=== PATIENT | female | born 1960 | race Caucasian/White ===

== ENCOUNTER 2017-07-24 03:19 | Emergency (ER) | payer OTHER ==
[~2017-07-24] VITALS: Ht 170.2 cm; Wt 81.7 kg
[~2017-07-24 03:19] MED LIST: ALBU90OI61 INH; CARI350; DIAZ10 PO; FLUSAL2505 INH; Fiorinal1 EA PO; GABA300 PO; GLYB2.5 PO; HYDACE5; HYDACE5 PO; HYDR1TAB94 PO; IBUP600 PO; IBUP800 PO; LEVSOD150 PO; LEVSOD200; LEVSOD200 PO; META800 PO; METF500 PO; Norco 5-325 Ta1 EACH PO; PIOG15 PO; PRED20 PO; PROC10 PO; Percocet 5-3251 EACH PO; Prednisone50 MG PO; RANI150EL PO; SUCR1 PO; TOPI50 PO; Valium5 MG PO; ZANTAC PO; Zofran Odt4 MG PO
[2017-07-24] MEDS ORDERED: GLYB2.5 PO (04:16)
[2017-07-24] MEDS ORDERED: LEVO-T150 MCG PO (04:17)
[2018-01-25] MEDS ORDERED: BOTOX COSMETIC100 U (18:06)
[2018-01-25] MEDS ORDERED: BUDE6HFA INH (18:06)
[2018-01-25] MEDS ORDERED: BACL10 PO (18:18)
[2018-01-25] MEDS ORDERED: META800 PO (18:50)
[2018-01-25] MEDS ORDERED: LIDO700A20 TOP (18:50)
== END 2017-07-24 07:14 | disposition home or self-care (01) ==
LOC: ER 03:19
DX: M25.551 Pain in right hip (principal); G89.29 Other chronic pain; E11.9 Type 2 diabetes mellitus without complications; Z88.8 Allergy status to other drugs, medicaments and biological substances; Z88.0 Allergy status to penicillin; Z91.011 Allergy to milk products; Z91.012 Allergy to eggs; Z79.899 Other long term (current) drug therapy
CPT/HCPCS: 73502; 99283

== ENCOUNTER → 2017-10-13 | Outpatient (CLI) | payer OTHER ==
[~2017-10-13] MED LIST changes: +LEVO-T150 MCG PO
[2017-10-13 18:49] LABS: Free Thyroxine 0.93 ng/dL (0.70-1.60); Thyroid Stimulating Hormone 3.98 uIU/mL (0.360-4.800)
== END | disposition home or self-care (01) ==
LOC: LAB SHORT 18:01 → LAB 18:01
PROVIDERS: Nurse Practitioner Family
DX: E03.9 Hypothyroidism, unspecified (principal)
CPT/HCPCS: 84439; 84443

== ENCOUNTER 2018-01-30 15:51 | Emergency (ER) | payer OTHER ==
[~2018-01-30] VITALS: Ht 170.2 cm; Wt 73.9 kg
[~2018-01-30 15:51] MED LIST changes: +BACL10 PO; +BOTOX COSMETIC100 U; +BUDE6HFA INH; +LIDO700A20 TOP
[2018-01-30] MEDS ORDERED: LIDO700A20 TOP (17:00)
[2018-01-30] MEDS ORDERED: META800 PO (17:00)
== END 2018-01-30 17:08 | disposition home or self-care (01) ==
LOC: ER 15:51
DX: R20.2 Paresthesia of skin (principal); E11.9 Type 2 diabetes mellitus without complications; Z88.8 Allergy status to other drugs, medicaments and biological substances; Z88.0 Allergy status to penicillin; Z91.011 Allergy to milk products; Z79.899 Other long term (current) drug therapy; Z79.84 Long term (current) use of oral hypoglycemic drugs
CPT/HCPCS: 73030; 73110; 99283-25

== ENCOUNTER → 2019-01-10 | Outpatient (CLI) | payer OTHER ==
[~2019-01-10] MED LIST changes: +ACAI WEIGHT CO1 EACH PO; +AIMOVIG AU70 MG/1 ML SC; +CHLO4 PO; +CHOLESTEROL DEFENSE PO; +CHROMIUM400 MCG PO; +Calcium Citrat200 MG PO; +DICLO GEL1 EACH TOP; +Esgic Tablet1 EACH PO; +FISH OIL 1,0001 EAC1 PO; +GREEN TEA SLIM PO; +MIGRAINE RELIE1 EACH PO; +RASPBERRY KETO100 MG PO; +RED YEAST RICE600 MG PO; +Super Calcium600 MG PO; +Synthroid200 MCG PO; +VITAMIN D32000 UNI1 PO
[2019-01-10 19:00] LABS: Bilirubin, Urine Neg (Neg); Blood, Urine 4+ (Neg); Glucose Qualitative, Urine Neg (Neg); Ketones, Urine Neg (Neg); Leukocyte Esterase, Urine 3+ (Neg); Nitrite, Urine Neg (Neg); Protein, Urine 2+ (Neg); Urobilinogen, Urine NORM (Normal)
[2019-01-10 19:07] LABS: Appearance, Urine Clear (Clear); Color, Urine Yellow (P-Yellow)
[2019-01-10 19:08] LABS: Bacteria Many /hpf; Squamous Epithelial Cells Few /hpf (Few); White Blood Cells, Urine 25-50 /hpf (0-5)
== END | disposition home or self-care (01) ==
LOC: LAB 18:16 → LAB SHORT 18:16
PROVIDERS: Nurse Practitioner Family
DX: N39.0 Urinary tract infection, site not specified (principal)
CPT/HCPCS: 81001; 87077; 87086; 87186

== ENCOUNTER 2019-01-17 08:59 | Day surgery (SDC) | payer OTHER ==
[~2019-01-17] VITALS: Ht 170.2 cm; Wt 62.9 kg
[~2019-01-17 08:59] MED LIST changes: -ACAI WEIGHT CO1 EACH PO; -AIMOVIG AU70 MG/1 ML SC; -CHLO4 PO; -CHOLESTEROL DEFENSE PO; -CHROMIUM400 MCG PO; -Calcium Citrat200 MG PO; -DICLO GEL1 EACH TOP; -Esgic Tablet1 EACH PO; -FISH OIL 1,0001 EAC1 PO; -GREEN TEA SLIM PO; -MIGRAINE RELIE1 EACH PO; -RASPBERRY KETO100 MG PO; -RED YEAST RICE600 MG PO; -Super Calcium600 MG PO; -Synthroid200 MCG PO; -VITAMIN D32000 UNI1 PO
--- NOTE | 2019-01-17 10:35 | NUR ---
01/17/19 1035 Krista Manuel LATE ENTRY---THERE WAS FOOD IN STOMACH, DR GASTON ONLY TOOK BX'S GASTIC THEN ABORTED PROCEDURE DUE TO THE LARGE AMOUNT OF UNDIGESTED FOOD. PATIENT WAS STABLE AND NO PROBLEMS DURING THE SHORT PROCEDURE
[2019-01-24] MEDS ORDERED: Esgic Tablet1 EACH PO (14:02)
[2019-01-24] MEDS ORDERED: Synthroid200 MCG PO (14:02)
[2019-01-24] MEDS ORDERED: DICLO GEL1 EACH TOP (14:03)
[2019-01-24] MEDS ORDERED: Super Calcium600 MG PO (14:03)
[2019-01-24] MEDS ORDERED: VITAMIN D32000 UNI1 PO (14:04)
[2019-01-24] MEDS ORDERED: RED YEAST RICE600 MG PO (14:04)
[2019-01-24] MEDS ORDERED: FISH OIL 1,0001 EAC1 PO (14:04)
[2019-01-24] MEDS ORDERED: Calcium Citrat200 MG PO (14:05)
[2019-01-24] MEDS ORDERED: RASPBERRY KETO100 MG PO (14:06)
[2019-01-24] MEDS ORDERED: GREEN TEA SLIM PO (14:06)
[2019-01-24] MEDS ORDERED: CHLO4 PO (14:07)
[2019-01-24] MEDS ORDERED: ACAI WEIGHT CO1 EACH PO (14:07)
[2019-01-24] MEDS ORDERED: CHROMIUM400 MCG PO (14:07)
[2019-01-24] MEDS ORDERED: CHOLESTEROL DEFENSE PO (14:07)
[2019-01-24] MEDS ORDERED: AIMOVIG AU70 MG/1 ML SC (14:08)
[2019-01-24] MEDS ORDERED: MIGRAINE RELIE1 EACH PO (14:09)
== END 2019-01-17 10:31 | disposition home or self-care (01) ==
LOC: ORSCSDS 08:59
PROVIDERS: Internal Medicine Gastroenterology
PROC: 0DB68ZX Excision of Stomach, Via Natural or Artificial Opening Endoscopic, Diagnostic (ICD-10-PCS; principal; 2019-01-17 10:15)
DX: K21.0 Gastro-esophageal reflux disease with esophagitis (principal); K44.9 Diaphragmatic hernia without obstruction or gangrene; E11.9 Type 2 diabetes mellitus without complications; J45.909 Unspecified asthma, uncomplicated; E03.9 Hypothyroidism, unspecified; E78.5 Hyperlipidemia, unspecified; N18.2 Chronic kidney disease, stage 2 (mild); Z79.899 Other long term (current) drug therapy
CPT/HCPCS: 82947; 88305; 88342; J2704; J7120

== ENCOUNTER 2019-01-28 07:40 | Day surgery (SDC) | payer OTHER ==
[~2019-01-28] VITALS: Ht 170.2 cm; Wt 61.4 kg
[~2019-01-28 07:40] MED LIST changes: +ACAI WEIGHT CO1 EACH PO; +AIMOVIG AU70 MG/1 ML SC; +CHLO4 PO; +CHOLESTEROL DEFENSE PO; +CHROMIUM400 MCG PO; +Calcium Citrat200 MG PO; +DICLO GEL1 EACH TOP; +Esgic Tablet1 EACH PO; +FISH OIL 1,0001 EAC1 PO; +GREEN TEA SLIM PO; +MIGRAINE RELIE1 EACH PO; +RASPBERRY KETO100 MG PO; +RED YEAST RICE600 MG PO; +Super Calcium600 MG PO; +Synthroid200 MCG PO; +VITAMIN D32000 UNI1 PO
--- NOTE | 2019-01-28 08:49 | NUR ---
01/28/19 0849 MARGARETTE GIFFORD ONE BAD IV, ONE GOOD IV BY ADA
== END 2019-01-28 09:49 | disposition home or self-care (01) ==
LOC: ORSCSDS 07:40
PROVIDERS: Internal Medicine Gastroenterology
PROC: 0DB68ZX Excision of Stomach, Via Natural or Artificial Opening Endoscopic, Diagnostic (ICD-10-PCS; principal; 2019-01-28 09:00)
PROC: 0DB58ZX Excision of Esophagus, Via Natural or Artificial Opening Endoscopic, Diagnostic (ICD-10-PCS; principal; 2019-01-28 09:00)
DX: K21.0 Gastro-esophageal reflux disease with esophagitis (principal); K22.2 Esophageal obstruction; K29.90 Gastroduodenitis, unspecified, without bleeding; K44.9 Diaphragmatic hernia without obstruction or gangrene; E03.9 Hypothyroidism, unspecified; E78.5 Hyperlipidemia, unspecified; E11.9 Type 2 diabetes mellitus without complications; Z79.84 Long term (current) use of oral hypoglycemic drugs; Z79.899 Other long term (current) drug therapy
CPT/HCPCS: 82947; 88305; 88312; 88341; 88342; J2704; J7120

== ENCOUNTER 2019-02-22 20:53 | Emergency (ER) | payer OTHER ==
[~2019-02-22] VITALS: Ht 170.2 cm; Wt 59.9 kg
[2019-02-22] MEDS ORDERED: TOPI50 PO (23:05)
[2019-02-22] MEDS ORDERED: IBUP600 PO (23:42)
[2019-02-22] MEDS ORDERED: HYDR1TAB94 PO (23:42)
== END 2019-02-23 00:27 | disposition home or self-care (01) ==
LOC: ER 20:53
DX: S82.65XA Nondisplaced fracture of lateral malleolus of left fibula, initial encounter for closed fracture (principal); W01.0XXA Fall on same level from slipping, tripping and stumbling without subsequent striking against object, initial encounter; Z88.8 Allergy status to other drugs, medicaments and biological substances; Z88.0 Allergy status to penicillin; Z91.011 Allergy to milk products; Z91.012 Allergy to eggs; Z79.84 Long term (current) use of oral hypoglycemic drugs; Z79.82 Long term (current) use of aspirin; Z79.899 Other long term (current) drug therapy; E11.9 Type 2 diabetes mellitus without complications
CPT/HCPCS: 29505; 73610; 73630; 99283-25; A9270

== ENCOUNTER 2019-02-28 21:08 | Emergency (ER) | payer OTHER ==
[~2019-02-28] VITALS: Ht 170.2 cm; Wt 61.2 kg
== END 2019-02-28 22:34 | disposition home or self-care (01) ==
LOC: ER 21:08
DX: S82.402D Unspecified fracture of shaft of left fibula, subsequent encounter for closed fracture with routine healing (principal); E11.9 Type 2 diabetes mellitus without complications; Z88.8 Allergy status to other drugs, medicaments and biological substances; Z88.0 Allergy status to penicillin; Z91.012 Allergy to eggs; Z91.011 Allergy to milk products; Z79.899 Other long term (current) drug therapy; Z79.82 Long term (current) use of aspirin; Z79.84 Long term (current) use of oral hypoglycemic drugs; X58.XXXD Exposure to other specified factors, subsequent encounter
CPT/HCPCS: 73610; 99283-25; A9270; A9270-GY

== ENCOUNTER → 2019-04-28 | Outpatient (CLI) | payer OTHER ==
[2019-05-02 14:07] LABS: HPV 16 Negative (Negative); HPV 18 Negative (Negative); HPV OTHER HR TYPES Negative (Negative)
== END ==
LOC: OLS 16:45 → LAB SHORT 16:45
PROVIDERS: Registered Nurse Community Health
DX: Z12.4 Encounter for screening for malignant neoplasm of cervix (principal); N95.1 Menopausal and female climacteric states; Z80.3 Family history of malignant neoplasm of breast
CPT/HCPCS: 87624; G0123

== ENCOUNTER → 2019-04-28 | Outpatient (CLI) | payer OTHER | LOC: LAB SHORT 16:45 → LAB 16:45 | DX: Z12.4 Encounter for screening for malignant neoplasm of cervix (principal); N95.1 Menopausal and female climacteric states; Z80.3 Family history of malignant neoplasm of breast | CPT/HCPCS: 87070; 87205 ==

== ENCOUNTER → 2019-06-02 | Outpatient (CLI) | payer OTHER | LOC: LAB SHORT 11:58 → PLD 11:58 | DX: N95.0 Postmenopausal bleeding (principal) | CPT/HCPCS: 88305 ==

== ENCOUNTER 2020-06-13 20:07 | Emergency (ER) | payer OTHER ==
[~2020-06-13] VITALS: Ht 170.2 cm; Wt 74.8 kg
[~2020-06-13 20:07] MED LIST changes: +AMLO5 PO; +Actos15 MG; +FLUT1DIS5 INH
[2020-06-13] MEDS ORDERED: CEFD300 PO (20:17)
== END 2020-06-13 20:24 | disposition home or self-care (01) ==
LOC: ER 20:07
DX: H66.91 Otitis media, unspecified, right ear (principal); K21.9 Gastro-esophageal reflux disease without esophagitis; E11.9 Type 2 diabetes mellitus without complications; Z79.82 Long term (current) use of aspirin; Z79.899 Other long term (current) drug therapy; Z88.8 Allergy status to other drugs, medicaments and biological substances; Z91.012 Allergy to eggs; Z91.011 Allergy to milk products; Z88.0 Allergy status to penicillin; Z79.51 Long term (current) use of inhaled steroids
CPT/HCPCS: 99282

== ENCOUNTER → 2020-07-09 | Outpatient (CLI) | payer OTHER ==
[~2020-07-09] MED LIST changes: +CEFD300 PO
== END | disposition home or self-care (01) ==
LOC: LAB 17:56 → LAB SHORT 17:56
DX: R39.9 Unspecified symptoms and signs involving the genitourinary system (principal)
CPT/HCPCS: 87077; 87086; 87186

== ENCOUNTER 2021-05-12 18:45 | Emergency (ER) | payer OTHER ==
[~2021-05-12] VITALS: Ht 170.2 cm; Wt 67.1 kg
== END 2021-05-12 21:20 | disposition home or self-care (01) ==
LOC: ER 18:45
DX: S63.502A Unspecified sprain of left wrist, initial encounter (principal); S93.402A Sprain of unspecified ligament of left ankle, initial encounter; E11.9 Type 2 diabetes mellitus without complications; K21.9 Gastro-esophageal reflux disease without esophagitis; Z88.8 Allergy status to other drugs, medicaments and biological substances; Z88.0 Allergy status to penicillin; Z91.011 Allergy to milk products; Z91.012 Allergy to eggs; Z79.82 Long term (current) use of aspirin; Z79.899 Other long term (current) drug therapy; W06.XXXA Fall from bed, initial encounter
CPT/HCPCS: 73110; 73610; 99283-25

== ENCOUNTER → 2021-09-30 | Outpatient (CLI) | payer OTHER ==
[2021-10-01 22:21] LABS: Adenovirus F 40/41 Not Detected (NOT DETECT); Astrovirus Not Detected (NOT DETECT); Campylobacter Sp Not Detected (NOT DETECT); Cryptosporidium Not Detected (NOT DETECT); Cyclospora Cayetanensis Not Detected (NOT DETECT); E. Coli O157 Not Detected (NOT DETECT); Entamoeba Histolytica Not Detected (NOT DETECT); Enteroaggregative E. coli-EAEC Not Detected (NOT DETECT); Enteropathogenic E. coli-EPEC Not Detected (NOT DETECT); Enterotoxigenic E. coli-ETEC Not Detected (NOT DETECT); Giardia Lamblia Not Detected (NOT DETECT); Norovirus GI/GII Not Detected (NOT DETECT); Plesiomonas Shigelloides Not Detected (NOT DETECT); Rotavirus A Not Detected (NOT DETECT); Salmonella Sp Not Detected (NOT DETECT); Sapovirus Not Detected (NOT DETECT); Shiga Toxin-prod E. coli-STEC Not Detected (NOT DETECT); Shigella/Enteroin E. coli-EIEC Not Detected (NOT DETECT); Vibrio Cholerae Not Detected (NOT DETECT); Vibrio Sp Not Detected (NOT DETECT); Yersinia Enterocolitica Not Detected (NOT DETECT)
== END | disposition home or self-care (01) ==
LOC: LAB SHORT 02:00
PROVIDERS: Emergency Medicine
DX: E86.0 Dehydration (principal); R19.7 Diarrhea, unspecified
CPT/HCPCS: 87507

== ENCOUNTER → 2022-02-24 | Outpatient (CLI) | payer OTHER | END | disposition home or self-care (01) | LOC: LAB 18:14 → LAB SHORT 18:14 | DX: N39.0 Urinary tract infection, site not specified (principal) | CPT/HCPCS: 87077; 87086; 87186 ==

== ENCOUNTER 2022-04-10 06:14 | Day surgery (SDC) | payer OTHER ==
[~2022-04-10] VITALS: Ht 170.2 cm; Wt 75.8 kg
[2022-04-10] MEDS ORDERED: Lisinopril2.5 MG PO (06:59)
[2022-04-10] MEDS ORDERED: BUTALB-ACETAMI1 EAC7 PO (07:02)
[2022-04-10] MEDS ORDERED: LIOT5 PO (07:03)
[2022-04-10] MEDS ORDERED: EZET10 PO (07:04)
--- NOTE | 2022-04-10 08:58 | NUR ---
04/10/22 0858 ROBIN FLORES PT VOID PRIOR TO DC.
== END 2022-04-10 09:00 | disposition home or self-care (01) ==
LOC: ORSCSDS 06:14
PROVIDERS: Obstetrics & Gynecology
PROC: 0UJD8ZZ Inspection of Uterus and Cervix, Via Natural or Artificial Opening Endoscopic (ICD-10-PCS; principal; 2022-04-10 07:30)
PROC: 0UDB7ZX Extraction of Endometrium, Via Natural or Artificial Opening, Diagnostic (ICD-10-PCS; principal; 2022-04-10 07:30)
DX: N95.0 Postmenopausal bleeding (principal); R10.2 Pelvic and perineal pain; Z80.3 Family history of malignant neoplasm of breast; E11.22 Type 2 diabetes mellitus with diabetic chronic kidney disease; N18.2 Chronic kidney disease, stage 2 (mild); I12.9 Hypertensive chronic kidney disease with stage 1 through stage 4 chronic kidney disease, or unspecified chronic kidney disease; K76.0 Fatty (change of) liver, not elsewhere classified; E03.9 Hypothyroidism, unspecified; J44.9 Chronic obstructive pulmonary disease, unspecified; J45.909 Unspecified asthma, uncomplicated; K21.9 Gastro-esophageal reflux disease without esophagitis; E78.5 Hyperlipidemia, unspecified; Z79.899 Other long term (current) drug therapy
CPT/HCPCS: 82947; 88305; 88342; A9270; J2370; J2704; J3010; J7120

== ENCOUNTER → 2022-09-12 | Outpatient (CLI) | payer OTHER ==
[~2022-09-12] MED LIST changes: +BUTALB-ACETAMI1 EAC7 PO; +EZET10 PO; +LIOT5 PO; +Lisinopril2.5 MG PO
== END | disposition home or self-care (01) ==
LOC: LAB SHORT 17:59
DX: N30.90 Cystitis, unspecified without hematuria (principal)
CPT/HCPCS: 87086

== ENCOUNTER 2022-09-20 12:36 | Emergency (ER) | payer OTHER ==
[~2022-09-20] VITALS: Ht 170.2 cm; Wt 72.6 kg
== END 2022-09-20 15:55 | disposition home or self-care (01) ==
LOC: ER 12:36
DX: S71.111A Laceration without foreign body, right thigh, initial encounter (principal); W27.8XXA Contact with other nonpowered hand tool, initial encounter; Z23 Encounter for immunization; E11.22 Type 2 diabetes mellitus with diabetic chronic kidney disease; N18.9 Chronic kidney disease, unspecified; Z91.012 Allergy to eggs; Z91.02 Food additives allergy status; Z91.011 Allergy to milk products; Z88.0 Allergy status to penicillin; Z88.8 Allergy status to other drugs, medicaments and biological substances; Z91.048 Other nonmedicinal substance allergy status
CPT/HCPCS: 90714

== ENCOUNTER 2022-09-25 06:00 | Day surgery (SDC) | payer OTHER ==
[2022-09-23 17:42] LABS: BASOPHILS ABSOLUTE AUTO 0.05 K/mm3 (0.00-0.23); BASOPHILS PERCENT AUTO 1 % (0-2); EOSINOPHILS ABSOLUTE AUTO 0.44 K/mm3 (0.00-0.68); EOSINOPHILS PERCENT AUTO 4 % (0-6); Hematocrit 41.4 % (33.0-51.0); Hemoglobin 13.5 g/dL (11.5-16.0); IMMATURE GRAN ABSOLUTE AUTO 0.01 K/mm3 (0.00-0.10); IMMATURE GRAN PERCENT AUTO 0 % (0-1); LYMPHOCYTES ABSOLUTE AUTO 1.91 K/mm3 (0.84-5.20); LYMPHOCYTES PERCENT AUTO 19 % (21-46); MONOCYTES PERCENT AUTO 6 % (4-13); Mean Corpuscular HGB 30.6 pg (26.0-34.0); Mean Corpuscular HGB Conc 32.6 g/dL (31.5-36.5); Mean Corpuscular Volume 94 fL (80-100); NEUTROPHILS ABSOLUTE AUTO 6.99 K/mm3 (1.96-9.15); NEUTROPHILS PERCENT AUTO 70 % (41-73); Platelet Count 214 K/mm3 (150-400); RDW Coefficient Variation 14.8 % (11.7-14.2); RDW Standard Deviation 51.4 fL (35.1-46.3); Red Blood Cell Count 4.41 M/mm3 (3.80-5.20)
[2022-09-23 17:55] LABS: Bun/Creatinine Ratio 35.7 (12.0-20.0); Calcium, Blood 9.1 mg/dL (8.5-10.1); Creatinine, Blood 1.29 mg/dL (0.40-1.00); Potassium, Blood 4.6 mmol/L (3.5-5.5)
[~2022-09-25] VITALS: Ht 170.2 cm; Wt 71.3 kg
[~2022-09-25 06:00] MED LIST changes: +AIMOVIG AU140 MG/1 M SQ; +Robaxin750 MG; +SUCR1
--- NOTE | 2022-09-25 07:21 | NUR ---
Ambulatory in Day [facility] WITH CANE. History, Chart, Medications and Allergies reviewed before start of procedure. Lungs clear T/O to Auscultation. Patient confirms NPO status and agrees with scheduled surgery. Pre-Op teaching done. Pt verbalizes understanding. PT BELONGINGS PLACED UNDERNEATH GURNEY FOR SAFEKEEPING. PT CANE TAKEN TO PACU FOR SAFEKEEPING.
--- NOTE | 2022-09-25 08:33 | NUR ---
09/25/22 0833 Chary Michele BRUISES AND ONE SMALL CUT WITH GLUE SUBSTAMCE COVERING IT NOTED ON LEGS DURING POSITIONG
--- NOTE | 2022-09-25 12:26 | NUR ---
PT ARRIVED TO UNIT AT APROX 1100 FROM PACU. LAP SITES X'S 4 C/D/I CLOSED W/WOUND GLU. PT SBA TO BATHROOM, VOIDED 300 DARK YELLOW URINE W/O DIFFICULTY. PT DENIES PAIN. PLAN FOR DC THIS AFTERNOON IF MEETS ALL DC CRITERIA.
--- NOTE | 2022-09-25 17:21 | NUR ---
DISCHARGE PT DISCHARGED HOME FROM UNIT AT APROX 1430. PT VOIDED, AMBULATED, NO PAIN FOLLOWING ARRIVAL TO UNIT. ALL DC CRITERIA MET. PT GIVEN WRITTEN AND VERBAL DC INSTRUCTIONS AND VERBALIZED UNDERSTANDING OF THESE INSTRUCTIONS. IV REMOVED. WC TO CAR. PT STATES SHE HAS RX FOR PAIN MEDICATION AT HOME RECIEVED AT PRE-OP APT.
== END 2022-09-25 15:08 | disposition home or self-care (01) ==
LOC: ORSCMMR 06:00 → ORD 07:30 → ORSCMMR 07:30 → ORD 08:00 → SURS 10:42 → ORSCMMR 15:08
PROVIDERS: Obstetrics & Gynecology
PROC: 0UT7FZZ Resection of Bilateral Fallopian Tubes, Via Natural or Artificial Opening With Percutaneous Endoscopic Assistance (ICD-10-PCS; principal; 2022-09-25 07:30)
PROC: 0UT2FZZ Resection of Bilateral Ovaries, Via Natural or Artificial Opening With Percutaneous Endoscopic Assistance (ICD-10-PCS; principal; 2022-09-25 07:30)
PROC: 0UT9FZZ Resection of Uterus, Via Natural or Artificial Opening With Percutaneous Endoscopic Assistance (ICD-10-PCS; principal; 2022-09-25 07:30)
PROC: 8E0W4CZ Robotic Assisted Procedure of Trunk Region, Percutaneous Endoscopic Approach (ICD-10-PCS; principal; 2022-09-25 07:30)
DX: N95.0 Postmenopausal bleeding (principal); R10.2 Pelvic and perineal pain; D25.9 Leiomyoma of uterus, unspecified; N72 Inflammatory disease of cervix uteri; N73.6 Female pelvic peritoneal adhesions (postinfective); N83.292 Other ovarian cyst, left side; N83.291 Other ovarian cyst, right side; N83.8 Other noninflammatory disorders of ovary, fallopian tube and broad ligament; G47.33 Obstructive sleep apnea (adult) (pediatric); E11.9 Type 2 diabetes mellitus without complications; E03.9 Hypothyroidism, unspecified; K21.9 Gastro-esophageal reflux disease without esophagitis; Z79.899 Other long term (current) drug therapy; N18.2 Chronic kidney disease, stage 2 (mild)
CPT/HCPCS: 58571; S2900; 36415; 80048; 82947; 85025; 86850; 86900; 86901; 88108; 88307; A9270; J0690; J1100; J1885; J2250; J2405; J2704; J2795; J3010; J7120

== ENCOUNTER 2022-10-10 21:27 | Emergency (ER) | payer OTHER ==
[~2022-10-10] VITALS: Ht 170.2 cm; Wt 72.6 kg
[2022-10-10 21:43] VITALS: BP 128/76
== END 2022-10-10 23:05 | disposition home or self-care (01) ==
LOC: ER 21:27
DX: S63.92XA Sprain of unspecified part of left wrist and hand, initial encounter (principal); X50.0XXA Overexertion from strenuous movement or load, initial encounter; E11.22 Type 2 diabetes mellitus with diabetic chronic kidney disease; N18.9 Chronic kidney disease, unspecified; Z91.012 Allergy to eggs; Z91.02 Food additives allergy status; Z91.011 Allergy to milk products; Z88.0 Allergy status to penicillin; Z88.8 Allergy status to other drugs, medicaments and biological substances; Z91.048 Other nonmedicinal substance allergy status; Z79.899 Other long term (current) drug therapy
CPT/HCPCS: 29125; 73130; 99283-25

== ENCOUNTER 2022-11-04 08:35 | Day surgery (SDC) | payer OTHER ==
[~2022-11-04] VITALS: Ht 170.2 cm; Wt 69.5 kg
--- NOTE | 2022-11-04 09:53 | NUR ---
11/04/22 0953 Red Carlos CALL LIGHT WITHIN REACH. TETRACAINE IN AT 0949 AND PLEDGETT IN AT 0924
[2022-11-04 11:53] VITALS: BP 101/55
--- NOTE | 2022-11-04 11:55 | NUR ---
11/04/22 1155 GreernamElizabeth IV REMOVED, SITE WNL
== END 2022-11-04 12:06 | disposition home or self-care (01) ==
LOC: ORSCSDS 08:35
PROVIDERS: Student in an Organized Health Care Education/Training Program
PROC: 08DJ3ZZ Extraction of Right Lens, Percutaneous Approach (ICD-10-PCS; principal; 2022-11-04 10:00)
DX: H25.13 Age-related nuclear cataract, bilateral (principal); J45.909 Unspecified asthma, uncomplicated; E78.00 Pure hypercholesterolemia, unspecified; E03.9 Hypothyroidism, unspecified; E05.90 Thyrotoxicosis, unspecified without thyrotoxic crisis or storm; G47.33 Obstructive sleep apnea (adult) (pediatric); Z86.16 Personal history of COVID-19; Z79.899 Other long term (current) drug therapy
CPT/HCPCS: 82947; J2250; J3010; J7040; V2632

== ENCOUNTER 2022-11-06 11:28 | Emergency (ER) | payer OTHER ==
[~2022-11-06] VITALS: Ht 170.2 cm; Wt 69.0 kg
[2022-11-06 11:58] LABS: BASOPHILS ABSOLUTE AUTO 0.07 K/mm3 (0.00-0.23); BASOPHILS PERCENT AUTO 1 % (0-2); EOSINOPHILS ABSOLUTE AUTO 0.42 K/mm3 (0.00-0.68); EOSINOPHILS PERCENT AUTO 5 % (0-6); Hematocrit 39.5 % (33.0-51.0); Hemoglobin 12.6 g/dL (11.5-16.0); IMMATURE GRAN ABSOLUTE AUTO 0.02 K/mm3 (0.00-0.10); IMMATURE GRAN PERCENT AUTO 0 % (0-1); LYMPHOCYTES ABSOLUTE AUTO 2.15 K/mm3 (0.84-5.20); LYMPHOCYTES PERCENT AUTO 25 % (21-46); MONOCYTES ABSOLUTE AUTO 0.53 K/mm3 (0.16-1.47); MONOCYTES PERCENT AUTO 6 % (4-13); Mean Corpuscular HGB 30.1 pg (26.0-34.0); Mean Corpuscular HGB Conc 31.9 g/dL (31.5-36.5); Mean Corpuscular Volume 95 fL (80-100); Mean Platelet Volume 10.7 fL (9.1-12.4); NEUTROPHILS ABSOLUTE AUTO 5.55 K/mm3 (1.96-9.15); NEUTROPHILS PERCENT AUTO 64 % (41-73); Platelet Count 244 K/mm3 (150-400); RDW Coefficient Variation 14.3 % (11.7-14.2); RDW Standard Deviation 49.9 fL (35.1-46.3); Red Blood Cell Count 4.18 M/mm3 (3.80-5.20); White Blood Cell Count 8.74 K/mm3 (4.00-11.30)
[2022-11-06 12:41] LABS: Albumin, Blood 3.6 g/dL (3.4-5.0); Albumin/Globulin Ratio 1.1 (0.8-1.8); Bilirubin, Total 0.2 mg/dL (0.1-1.0); Calcium, Blood 9.7 mg/dL (8.5-10.1); Creatinine, Blood 1.26 mg/dL (0.40-1.00); Globulin, Blood 3.3 g/dL (2.2-4.0); Magnesium, Blood 2.1 mg/dL (1.6-2.4); Total Protein, Blood 6.9 g/dL (6.4-8.2)
[2022-11-06 14:08] VITALS: BP 116/77
== END 2022-11-06 14:22 | disposition home or self-care (01) ==
LOC: ER 11:28
PROVIDERS: Student in an Organized Health Care Education/Training Program
DX: R55 Syncope and collapse (principal); Z88.0 Allergy status to penicillin; Z88.8 Allergy status to other drugs, medicaments and biological substances; Z91.012 Allergy to eggs; Z91.011 Allergy to milk products; Z79.899 Other long term (current) drug therapy; E11.9 Type 2 diabetes mellitus without complications; K21.9 Gastro-esophageal reflux disease without esophagitis; N18.9 Chronic kidney disease, unspecified
CPT/HCPCS: 71046; 80053; 83735; 84484; 85025; 93005; 93010; 99284-25

== ENCOUNTER 2022-12-08 11:30 | Emergency (ER) | payer OTHER ==
[~2022-12-08] VITALS: Ht 170.2 cm; Wt 83.9 kg
[2022-12-08 11:39] VITALS: BP 125/80
[2022-12-08] MEDS ORDERED: CEPH500 PO (11:40)
== END 2022-12-08 11:45 | disposition home or self-care (01) ==
LOC: ER 11:30
DX: L03.113 Cellulitis of right upper limb (principal); J04.0 Acute laryngitis; E11.22 Type 2 diabetes mellitus with diabetic chronic kidney disease; N18.9 Chronic kidney disease, unspecified; W54.1XXA Struck by dog, initial encounter; Z88.0 Allergy status to penicillin; Z88.8 Allergy status to other drugs, medicaments and biological substances; Z91.011 Allergy to milk products; Z91.012 Allergy to eggs; Z91.09 Other allergy status, other than to drugs and biological substances; Z79.890 Hormone replacement therapy; Z79.899 Other long term (current) drug therapy
CPT/HCPCS: 99283

== ENCOUNTER 2023-01-05 11:19 | Emergency (ER) | payer OTHER ==
[~2023-01-05] VITALS: Ht 170.2 cm; Wt 70.3 kg
[~2023-01-05 11:19] MED LIST changes: +CEPH500 PO
[2023-01-05 11:27] VITALS: BP 117/60
== END 2023-01-05 14:19 | disposition home or self-care (01) ==
LOC: ER 11:19
DX: S62.317A Displaced fracture of base of fifth metacarpal bone, left hand, initial encounter for closed fracture (principal); S52.612A Displaced fracture of left ulna styloid process, initial encounter for closed fracture; Q78.0 Osteogenesis imperfecta; E11.22 Type 2 diabetes mellitus with diabetic chronic kidney disease; N18.9 Chronic kidney disease, unspecified; Z88.0 Allergy status to penicillin; Z88.8 Allergy status to other drugs, medicaments and biological substances; Z91.048 Other nonmedicinal substance allergy status; Z91.012 Allergy to eggs; Z91.011 Allergy to milk products; Z88.7 Allergy status to serum and vaccine; Z91.041 Radiographic dye allergy status; W19.XXXA Unspecified fall, initial encounter; Y92.481 Parking lot as the place of occurrence of the external cause
CPT/HCPCS: 29125; 73110; 96372-59; 99283-25; J1885

== ENCOUNTER 2023-04-08 09:14 | Emergency (ER) | payer OTHER ==
[~2023-04-08] VITALS: Ht 170.2 cm; Wt 70.3 kg
[2023-04-08 10:54] LABS: BASOPHILS ABSOLUTE AUTO 0.06 K/mm3 (0.00-0.23); BASOPHILS PERCENT AUTO 1 % (0-2); EOSINOPHILS PERCENT AUTO 3 % (0-6); Hematocrit 38.6 % (33.0-51.0); Hemoglobin 12.4 g/dL (11.5-16.0); IMMATURE GRAN ABSOLUTE AUTO 0.06 K/mm3 (0.00-0.10); IMMATURE GRAN PERCENT AUTO 1 % (0-1); LYMPHOCYTES ABSOLUTE AUTO 1.54 K/mm3 (0.84-5.20); LYMPHOCYTES PERCENT AUTO 20 % (21-46); MONOCYTES ABSOLUTE AUTO 0.39 K/mm3 (0.16-1.47); MONOCYTES PERCENT AUTO 5 % (4-13); Mean Corpuscular HGB 29.9 pg (26.0-34.0); Mean Corpuscular HGB Conc 32.1 g/dL (31.5-36.5); Mean Corpuscular Volume 93 fL (80-100); Mean Platelet Volume 10.6 fL (9.1-12.4); NEUTROPHILS ABSOLUTE AUTO 5.41 K/mm3 (1.96-9.15); NEUTROPHILS PERCENT AUTO 71 % (41-73); Platelet Count 243 K/mm3 (150-400); RDW Coefficient Variation 14.5 % (11.7-14.2); Red Blood Cell Count 4.15 M/mm3 (3.80-5.20); White Blood Cell Count 7.66 K/mm3 (4.00-11.30)
[2023-04-08 11:35] LABS: Albumin, Blood 3.7 g/dL (3.4-5.0); Albumin/Globulin Ratio 1.1 (0.8-1.8); Bilirubin, Total 0.4 mg/dL (0.1-1.0); Bun/Creatinine Ratio 30.2 (12.0-20.0); Calcium, Blood 8.6 mg/dL (8.5-10.1); Creatinine, Blood 1.26 mg/dL (0.40-1.00); Globulin, Blood 3.3 g/dL (2.2-4.0); Potassium, Blood 4.3 mmol/L (3.5-5.5)
[2023-04-08 14:26] VITALS: BP 101/69
== END 2023-04-08 15:00 | disposition home or self-care (01) ==
LOC: ER 09:14
PROVIDERS: Emergency Medicine
DX: R07.9 Chest pain, unspecified (principal); G43.909 Migraine, unspecified, not intractable, without status migrainosus; E11.22 Type 2 diabetes mellitus with diabetic chronic kidney disease; N18.9 Chronic kidney disease, unspecified; Z91.012 Allergy to eggs; Z91.02 Food additives allergy status; Z91.011 Allergy to milk products; Z88.0 Allergy status to penicillin; Z88.8 Allergy status to other drugs, medicaments and biological substances; Z91.048 Other nonmedicinal substance allergy status; Z79.899 Other long term (current) drug therapy
CPT/HCPCS: 71046; 80053; 84484; 85025; 93005; 93010; 99285-25; A9270

== ENCOUNTER → 2023-05-27 | Outpatient (CLI) | payer OTHER | LOC: LAB 13:04 → LAB SHORT 13:04 | DX: R30.0 Dysuria (principal) | CPT/HCPCS: 87077; 87086; 87186 ==

== ENCOUNTER 2025-03-19 12:59 | Emergency (ER) | payer MEDICARE, OTHER ==
[~2025-03-19] VITALS: Ht 170.2 cm; Wt 81.7 kg
[2025-03-19 14:34] LABS: BASOPHILS ABSOLUTE AUTO 0.09 K/mm3 (0.00-0.23); BASOPHILS PERCENT AUTO 1 % (0-2); EOSINOPHILS ABSOLUTE AUTO 0.52 K/mm3 (0.00-0.68); EOSINOPHILS PERCENT AUTO 4 % (0-6); Hematocrit 43.8 % (33.0-51.0); Hemoglobin 14.2 g/dL (11.5-16.0); IMMATURE GRAN ABSOLUTE AUTO 0.05 K/mm3 (0.00-0.10); IMMATURE GRAN PERCENT AUTO 0 % (0-1); LYMPHOCYTES ABSOLUTE AUTO 1.46 K/mm3 (0.84-5.20); LYMPHOCYTES PERCENT AUTO 12 % (21-46); MONOCYTES ABSOLUTE AUTO 0.44 K/mm3 (0.16-1.47); MONOCYTES PERCENT AUTO 4 % (4-13); Mean Corpuscular HGB Conc 32.4 g/dL (31.5-36.5); Mean Corpuscular Volume 91 fL (80-100); NEUTROPHILS ABSOLUTE AUTO 10.01 K/mm3 (1.96-9.15); NEUTROPHILS PERCENT AUTO 80 % (41-73); NRBC ABSOLUTE 0.00 K/mm3 (0.00-0.02); NRBC Auto 0.0 /100 WBC (0.0-0.2); Platelet Count 262 K/mm3 (150-400); RDW Coefficient Variation 13.3 % (11.7-14.2); RDW Standard Deviation 45.1 fL (35.1-46.3)
[2025-03-19 14:56] LABS: Alanine Aminotransfer (ALT/SGP 25.0 U/L (12-78); Albumin, Blood 3.9 g/dL (3.4-5.0); Albumin/Globulin Ratio 1.1 (0.8-1.8); Anion Gap 7.0 mmol/L (3-11); Aspartate Aminotrans (AST/SGOT 17.0 U/L (12-37); Bilirubin, Total 0.5 mg/dL (0.1-1.0); Blood Urea Nitrogen 30.0 mg/dL (8-24); CO2, Blood 28.0 mmol/L (21-32); Calcium, Blood 9.4 mg/dL (8.5-10.1); Chloride, Blood 106.0 mmol/L (98-108); Creatinine, Blood 1.09 mg/dL (0.40-1.00); Globulin, Blood 3.6 g/dL (2.2-4.0); Glucose, Blood 224.0 mg/dL (70-99); Potassium, Blood 4.1 mmol/L (3.5-5.5); Sodium, Blood 137.0 mmol/L (136-145); Total Protein, Blood 7.5 g/dL (6.4-8.2)
[2025-03-19 15:38] LABS: Influenza A, PCR NEGATIVE (NEGATIVE); Influenza B, PCR NEGATIVE (NEGATIVE); Resp Syncytial Virus, PCR NEGATIVE (NEGATIVE); SARS-Cov-2 (COVID-19) PCR, MMC NEGATIVE (NEGATIVE)
[2025-03-19] MEDS ORDERED: Ipratropium/Albuterol SulF 2.5-0.5MG/3 ML Amp INH ONE (15:55)
[2025-03-19] MEDS ORDERED: Dexamethasone Sod Phos 10 MG/ML 1ML VIAL PO ONE (15:55)
[2025-03-19] MEDS ORDERED: MetFORMIN HCl 500 mg PO ONE (15:55)
[2025-03-19] MEDS ORDERED: METF500 PO (16:02)
[2025-03-19] MEDS ORDERED: LEVOTHYROXINE200 MCG PO (16:02)
[2025-03-19] MEDS ORDERED: ALBU90OI INH (16:02)
[2025-03-19 16:45] VITALS: BP 124/58
== END 2025-03-19 17:33 | disposition home or self-care (01) ==
LOC: ER 12:59
PROVIDERS: Emergency Medicine
DX: J44.1 Chronic obstructive pulmonary disease with (acute) exacerbation (principal); J44.0 Chronic obstructive pulmonary disease with (acute) lower respiratory infection; J20.9 Acute bronchitis, unspecified; B34.9 Viral infection, unspecified; K21.9 Gastro-esophageal reflux disease without esophagitis; E11.22 Type 2 diabetes mellitus with diabetic chronic kidney disease; N18.9 Chronic kidney disease, unspecified; E78.00 Pure hypercholesterolemia, unspecified; Z79.51 Long term (current) use of inhaled steroids; Z79.899 Other long term (current) drug therapy; Z88.0 Allergy status to penicillin; Z88.8 Allergy status to other drugs, medicaments and biological substances; Z91.012 Allergy to eggs; Z91.011 Allergy to milk products; Z88.5 Allergy status to narcotic agent
CPT/HCPCS: 71046; 80053; 84484; 85025; 87637; 93005; 93010; 99283-25; A9270; J1100